=== PATIENT | female | born 1995 | race Caucasian/White ===

== ENCOUNTER 2018-05-11 18:50 | Emergency (ER) | payer OTHER ==
[2018-05-11 19:00] VITALS: BP 150/103
[2018-05-11] MEDS ORDERED: METOCLOPRAMIDE HCL 10 MG TABLET PO ONE (20:03)
--- NOTE | 2018-05-11 20:04 | ER Document Report ---
ED Medical Screen (RME) - General Chief Complaint: Vag Bleeding, +preg <12wks Stated Complaint: VAGINAL BLEEDING WITH Time Seen by Provider: 05/11/18 20:02 - HPI Notes: 05/11/18 20:03 Positive approximate 10 weeks miscarriage in the past coming in for acute onset of vaginal bleeding - Related Data Allergies/Adverse Reactions: No Known Allergies Allergy (Verified 05/11/18 18:59) Past Medical History - Social History Chew tobacco use (# tins/day): No Frequency of alcohol use: None Drug Abuse: None Renal/ Medical History: Denies: Hx Peritoneal Dialysis Psychiatric Medical History: Reports: Hx Depression - and anxiety Past Surgical History: Reports: Hx Oral Surgery - wisdom teeth removal Review of Systems - Review of Systems Female Genitourinary: Vaginal bleeding Physical Exam - Vital signs Vitals: Temp Pulse Resp BP Pulse Ox 99.2 F 96 18 150/103 H 97 05/11/18 18:59 05/11/18 18:59 05/11/18 18:59 05/11/18 18:59 05/11/18 18:59 - Respiratory Respiratory status: No respiratory distress Chest status: Nontender Breath sounds: Normal Chest palpation: Normal Course - Vital Signs Vital signs: Temp Pulse Resp BP Pulse Ox 99.2 F 96 18 150/103 H 97 05/11/18 18:59 05/11/18 18:59 05/11/18 18:59 05/11/18 18:59 05/11/18 18:59
[2018-05-11 20:53] LABS: ABSOLUTE EOSINOPHILS # (AUTO) 0.1 10^3/uL (0.0-0.6); ABSOLUTE LYMPHOCYTES (AUTO) 2.4 10^3/uL (0.5-4.7); ABSOLUTE MONOCYTES (AUTO) 0.4 10^3/uL (0.1-1.4); ABSOLUTE NEUT (AUTO) 5.9 10^3/uL (1.7-8.2); BASOPHILS % (AUTO) 0.2 % (0-2); HEMATOCRIT 41.4 % (36.0-47.0); HEMOGLOBIN 14.6 g/dL (12.0-15.5); LYMPHOCYTES % (AUTO) 27.5 % (13-45); MEAN CORPUSCULAR HGB CONC 35.2 g/dL (32.0-36.0); MEAN CORPUSCULAR VOLUME 88 fl (80-97); MONOCYTES % (AUTO) 4.7 % (3-13); PLATELET COUNT 256 10^3/uL (150-450); RED BLOOD COUNT 4.69 10^6/uL (3.72-5.28); RED CELL DISTRIBUTION WIDTH 12.7 % (11.5-14.0); SEGMENTED NEUTROPHILS % (AUTO) 66.6 % (42-78); TOTAL CELLS COUNTED % (AUTO) 100 %; WHITE BLOOD COUNT 8.8 10^3/uL (4.0-10.5)
[2018-05-11 21:02] LABS: APPEARANCE,URINE CLEAR; BILIRUBIN,URINE NEGATIVE (NEGATIVE); COLOR,URINE STRAW; GLUCOSE, URINE NEGATIVE (NEGATIVE); KETONES,URINE NEGATIVE (NEGATIVE); LEUKOCYTE ESTERASE,URINE NEGATIVE (NEGATIVE); NITRITE,URINE NEGATIVE (NEGATIVE); PROTEIN,URINE NEGATIVE (NEGATIVE); UROBILINOGEN,URINE NEGATIVE mg/dL (<2.0)
[2018-05-11 21:15] LABS: ALANINE AMINOTRANSFERASE 23 U/L (9-52); ALBUMIN 4.7 g/dL (3.5-5.0); ALKALINE PHOSPHATASE 93 U/L (38-126); ANION GAP 13 (5-19); ASPARTATE AMINO TRANSFERASE 26 U/L (14-36); BILIRUBIN,DIRECT 0.2 mg/dL (0.0-0.4); BILIRUBIN,TOTAL 0.3 mg/dL (0.2-1.3); BLOOD UREA NITROGEN 9 mg/dL (7-20); CALCIUM 9.9 mg/dL (8.4-10.2); CARBON DIOXIDE 25 mmol/L (22-30); CHLORIDE 102 mmol/L (98-107); GLUCOSE 78 mg/dL (75-110); LIPASE 75.7 U/L (23-300); POTASSIUM 4.1 mmol/L (3.6-5.0); SODIUM 140.3 mmol/L (137-145)
--- NOTE | 2018-05-11 22:22 | RADIOLOGY REPORT (SQ) ---
US PELVIS HISTORY: Early . Pelvic pain. COMPARISON: None. TECHNIQUE: Grayscale, color Doppler, and spectral Doppler ultrasound images of the pelvis were obtained. FINDINGS: There is an intrauterine gestational sac with a yolk sac and pole visualized. The gestational sac has a normal contour. The crown-rump length measures 2.92 cm corresponding to 9 weeks 5 days of . heart rate is 160 bpm. The cervix measures 3.2 cm in length. The left ovary was not visualized. The right ovary measures 4.3 x 2.4 x 1.8 cm and contains a 1.5 x 1.2 cm anechoic cyst. There is normal color Doppler blood flow in the right ovary. No pelvic free fluid is seen. IMPRESSION: Single live IUP with estimated gestational age 9 weeks 5 days.
--- NOTE | 2018-05-11 22:29 | ER Document Report ---
ED GI/ - General Chief Complaint: Vag Bleeding, +preg <12wks Stated Complaint: VAGINAL BLEEDING WITH Time Seen by Provider: 05/11/18 20:02 Mode of Arrival: Ambulatory Information source: Patient Notes: Patient is a who reports an approximate 10 weeks gestation with complaint o f vaginal bleeding that started at 6:00 tonight. Patient reports associated low abdominal cramping. Patient denies the passage of any clots. Patient denies any nausea, vomiting or diarrhea. - Related Data Allergies/Adverse Reactions: No Known Allergies Allergy (Verified 05/11/18 18:59) Past Medical History - General Information source: Patient - Social History Smoking Status: Never Smoker Chew tobacco use (# tins/day): No Frequency of alcohol use: None Drug Abuse: None Family History: Reviewed & Not Pertinent Patient has suicidal ideation: No Patient has homicidal ideation: No - Medical History Medical History: Negative Renal/ Medical History: Denies: Hx Peritoneal Dialysis Psychiatric Medical History: Reports: Hx Depression - and anxiety Past Surgical History: Reports: Hx Oral Surgery - wisdom teeth removal - Immunizations Immunizations up to date: Yes Review of Systems - Review of Systems Constitutional: No symptoms reported EENT: No symptoms reported Cardiovascular: No symptoms reported Respiratory: No symptoms reported Gastrointestinal: Abdominal pain - Intermittent low abdominal cramping Genitourinary: No symptoms reported Female Genitourinary: Vaginal bleeding Musculoskeletal: No symptoms reported Skin: No symptoms reported Hematologic/Lymphatic: No symptoms reported Neurological/Psychological: No symptoms reported Physical Exam - Vital signs Vitals: Temp Pulse Resp BP Pulse Ox 99.2 F 96 18 150/103 H 97 05/11/18 18:59 05/11/18 18:59 05/11/18 18:59 05/11/18 18:59 05/11/18 18:59 - Notes Notes: PHYSICAL EXAMINATION: GENERAL: Well-appearing, well-nourished and in no acute distress. HEAD: Atraumatic, normocephalic. EYES: Pupils equal round and reactive to light, extraocular movements intact, conjunctiva are normal. ENT: Nares patent, oropharynx clear without exudates. Moist mucous membranes. NECK: Normal range of motion, supple without lymphadenopathy LUNGS: Breath sounds clear to auscultation bilaterally and equal. No wheezes rales or rhonchi. HEART: Regular rate and rhythm without murmurs ABDOMEN: Soft, nontender, nondistended abdomen. No guarding, no rebound. No masses appreciated. Female : No CVA tenderness Musculoskeletal: Normal range of motion, no pitting or edema. No cyanosis. NEUROLOGICAL: Cranial nerves grossly intact. Normal speech, normal gait. Normal sensory, motor exams PSYCH: Normal mood, normal affect. SKIN: Warm, Dry, normal turgor, no rashes or lesions noted. Course - Re-evaluation Re-evalutation: Transvaginal ultrasound shows a living intrauterine of approximate gestational 9 weeks 5 days. CBC and comprehensive metabolic panel are unremarkable. Quantitative hCG 107,840. Patient is Rh+, RhoGam not indicated. Patient reports vaginal bleeding is very mild at this time. She denies any current low abdominal cramping. I discussed these findings with the patient. Patient will return to [place] on Sunday to have repeat transvaginal ultrasound and repeat blood work done. - Vital Signs Vital signs: Temp Pulse Resp BP Pulse Ox 99.2 F 96 18 150/103 H 97 05/11/18 18:59 05/11/18 18:59 05/11/18 18:59 05/11/18 18:59 05/11/18 18:59 - Laboratory Result Diagrams: 05/11/18 20:41 05/11/18 20:41 Laboratory results interpreted by me: 05/11/18 05/11/18 20:41 20:41 Beta HCG, Quant [id number] H Urine Blood MODERATE H Discharge - Discharge Clinical Impression: Threatened , Vaginal bleeding during Condition: Stable Disposition: HOME, SELF-CARE Instructions: Threatened Miscarriage ([facility]) Additional Instructions: Your ultrasound today showed a living intrauterine of approximately 9 weeks 5 days. Please follow-up with [facility], call Sunday to schedule an appointment. Pelvic rest until cleared by OB. Please return to the emergency department for worsening symptoms such as bleeding through more than 1 pad per hour for 4 consecutive hours, development of fever or severe abdominal pain. Forms: Follow-Up Laboratory Testing, Follow-Up Radiology Testing, Return to Work, Special Work Note
== END 2018-05-11 23:01 | disposition home or self-care (01) ==
LOC: ER 18:50
DX: O20.0 Threatened abortion (principal); O26.899 Other specified pregnancy related conditions, unspecified trimester; R10.30 Lower abdominal pain, unspecified; Z3A.00 Weeks of gestation of pregnancy not specified
CPT/HCPCS: 36415; 76817; 80053; 81001; 83690; 84702; 85025; 86900; 86901; 93976; 99284

== ENCOUNTER → 2018-05-14 | Outpatient (CLI) | payer OTHER ==
--- NOTE | 2018-05-14 16:36 | RADIOLOGY REPORT (SQ) ---
EXAM DESCRIPTION: U/S OB TRANSVAGINAL W/O DOP COMPLETED DATE/TIME: 05/14/2018 10:07 am REASON FOR STUDY: VAGINAL BLEEDING, POSITIVE COMPARISON: 05/11/2018. TECHNIQUE: Transvaginal static and realtime grayscale images acquired of the pelvis. Additional zeferino cted spectral and color Doppler images recorded. All images stored on PACs. bHCG: Not available CLINICAL DATES: ROSA 12/11/2018, EGA: 9 weeks 6 days LIMITATIONS: None. FINDINGS: FETUS: Single Living intrauterine . ULTRASOUND EGA: 10 weeks ULTRASOUND ROSA: 12/10/2018 EFW: Not applicable less than 20 weeks. CRL: 3.12 cm FHR: 168 beats per minute. SURVEY: Too early to assess. AMNIOTIC FLUID: Adequate amount. PLACENTA: Not yet developed due to early gestation. SUBCHORIONIC BLEED: No. SIZE OF BLEED: Not applicable. UTERUS: No masses. No anomalies. CERVICAL LENGTH: 3.2 cm Closed. RIGHT ADNEXA: Normal ovary with normal vascular flow. No adnexal free fluid. No adnexal masses. LEFT ADNEXA: Not well visualized. No adnexal free fluid. No adnexal masses. FREE FLUID: None. OTHER: No other significant finding. IMPRESSION: Living intrauterine with ultrasound estimated gestational age of 10 weeks. Trimester of : First - 0 to 13 weeks. TECHNICAL DOCUMENTATION: JOB ID: [id number]- All Rights Reserved Reading location - IP/workstation name: [email or web address]
== END ==
LOC: RAD 09:20
PROVIDERS: ATTEND Nurse Practitioner
DX: O20.9 Hemorrhage in early pregnancy, unspecified (principal); Z3A.00 Weeks of gestation of pregnancy not specified
CPT/HCPCS: 36415; 76817; 84702

== ENCOUNTER 2018-08-20 14:58 | Outpatient (CLI) | payer OTHER, BC ==
[2018-08-20 16:00] LABS: AMORPHOUS SEDIMENT,URINE TRACE /HPF; APPEARANCE,URINE CLOUDY; BILIRUBIN,URINE NEGATIVE (NEGATIVE); COLOR,URINE YELLOW; GLUCOSE, URINE NEGATIVE (NEGATIVE); KETONES,URINE NEGATIVE (NEGATIVE); LEUKOCYTE ESTERASE,URINE NEGATIVE (NEGATIVE); NITRITE,URINE NEGATIVE (NEGATIVE); PROTEIN,URINE NEGATIVE (NEGATIVE); URINE AMPHETAMINES SCREEN NEGATIVE; URINE BARBITURATES SCREEN NEGATIVE; URINE BENZODIAZEPINES SCREEN NEGATIVE; URINE COCAINE SCREEN NEGATIVE; URINE MARIJUANA (THC) SCREEN NEGATIVE; URINE METHADONE SCREEN NEGATIVE; URINE PHENCYCLIDINE SCREEN NEGATIVE; URINE SPECIFIC GRAVITY 1.017; UROBILINOGEN,URINE NEGATIVE mg/dL (<2.0)
== END 2018-08-20 16:35 | disposition home or self-care (01) ==
LOC: LC 14:58
PROVIDERS: ATTEND Obstetrics & Gynecology
PROC: 4A1HXCZ Monitoring of Products of Conception, Cardiac Rate, External Approach (ICD-10-PCS; principal; 2018-08-20)
DX: O23.42 Unspecified infection of urinary tract in pregnancy, second trimester (principal); O99.282 Endocrine, nutritional and metabolic diseases complicating pregnancy, second trimester; E86.0 Dehydration; Z3A.24 24 weeks gestation of pregnancy
CPT/HCPCS: 80307; 81001; 87086